=== PATIENT | female | born 1980 | race Caucasian/White ===

== ENCOUNTER → 2019-08-17 14:05 | Outpatient (BNVA) | payer OTHER, SELFPAY | PROVIDERS: PCP Otolaryngology; Visit Provider Internal Medicine Rheumatology | DX: M19.90 Unspecified osteoarthritis, unspecified site (principal); Z11.59 Encounter for screening for other viral diseases; Z79.899 Other long term (current) drug therapy; Z11.1 Encounter for screening for respiratory tuberculosis; Z72.89 Other problems related to lifestyle; F17.210 Nicotine dependence, cigarettes, uncomplicated | CPT/HCPCS: 36415; 80076; 82306; 82565; 85025; 85651; 86140; 86431; 86480; 86704; 86803; 87340; 99204 ==

== ENCOUNTER 2019-08-18 11:17 | Outpatient (CLI) | payer OTHER, SELFPAY ==
--- NOTE | 2019-08-18 11:24 | XR_ITS ---
WS: [id number] RIGHT FOOT: 3 VIEW(S) TECHNIQUE: AP, oblique and lateral. HISTORY: inflammatory arthritis COMPARISON: None available. No acute fracture or dislocation. Normal tarsal/metatarsal alignment. Mild hallux valgus deformity. No erosions. XR/XR foot RT min 3V* [id number] IMPRESSION: Mild hallux valgus deformity.
--- NOTE | 2019-08-18 11:24 | XR_ITS ---
WS: [id number] LEFT FOOT: 3 VIEW(S) TECHNIQUE: AP, oblique and lateral. HISTORY: inflammatory arthritis COMPARISON: None available. No acute fracture or dislocation. Normal tarsal/metatarsal alignment. No erosions. Calcific density just lateral to the proximal phalanx of the first toe. May be related t o prior trauma. XR/XR foot LT min 3V* [id number] IMPRESSION: 1. No erosions or evidence for inflammatory arthritis.
--- NOTE | 2019-08-18 11:24 | XR_ITS ---
WS: [id number] CHEST 2 VIEWS HISTORY: inflammatory arthritis COMPARISON: None available. Lungs: Benign granuloma RIGHT lower lung. Otherwise lungs are clear. No pleural effusion or pneumotho rax. Cardiac size: Normal. Mediastinum/Aorta: Normal mediastinum. Bones: Distal ends of the clavicles are normal. No resorption of bone. XR/XR chest 2V* [id number] IMPRESSION: Prior granulomatous disease. No acute cardiopulmonary disease.
== END 2019-08-18 11:18 | disposition home or self-care (01) ==
LOC: RADWPI 11:22
PROVIDERS: PCP Otolaryngology; Visit Provider Internal Medicine Rheumatology
DX: M20.11 Hallux valgus (acquired), right foot (principal)
CPT/HCPCS: 71046; 73630

== ENCOUNTER → 2019-11-08 11:14 | Outpatient (BNVA) | payer OTHER, SELFPAY | PROVIDERS: PCP Otolaryngology; Visit Provider Internal Medicine Rheumatology | DX: M79.7 Fibromyalgia (principal); M06.041 Rheumatoid arthritis without rheumatoid factor, right hand; M06.042 Rheumatoid arthritis without rheumatoid factor, left hand; Z71.89 Other specified counseling; Z79.899 Other long term (current) drug therapy | CPT/HCPCS: 99214; J1030 ==

== ENCOUNTER → 2019-11-14 12:32 | Outpatient (BNVA) | payer OTHER, SELFPAY | PROVIDERS: PCP Otolaryngology; Visit Provider Internal Medicine Rheumatology | DX: Z79.899 Other long term (current) drug therapy (principal) | CPT/HCPCS: 80053; 81000; 85025 ==

== ENCOUNTER → 2020-02-21 13:39 | Outpatient (BNVA) | payer OTHER, SELFPAY | PROVIDERS: PCP Otolaryngology; Visit Provider Internal Medicine Rheumatology | DX: M06.041 Rheumatoid arthritis without rheumatoid factor, right hand (principal); M06.042 Rheumatoid arthritis without rheumatoid factor, left hand; M79.7 Fibromyalgia; Z79.899 Other long term (current) drug therapy; F17.210 Nicotine dependence, cigarettes, uncomplicated | CPT/HCPCS: 99214 ==

== ENCOUNTER → 2020-05-16 09:02 | Outpatient (BNVA) | payer OTHER, SELFPAY | PROVIDERS: PCP Otolaryngology; Visit Provider Internal Medicine Rheumatology | DX: M06.041 Rheumatoid arthritis without rheumatoid factor, right hand (principal); M06.042 Rheumatoid arthritis without rheumatoid factor, left hand; Z79.899 Other long term (current) drug therapy; M79.7 Fibromyalgia; F17.210 Nicotine dependence, cigarettes, uncomplicated | CPT/HCPCS: 99214 ==

== ENCOUNTER → 2020-09-24 08:38 | Outpatient (BNVA) | payer OTHER, SELFPAY | PROVIDERS: PCP Otolaryngology; Visit Provider Internal Medicine Rheumatology | DX: M06.041 Rheumatoid arthritis without rheumatoid factor, right hand (principal); M06.042 Rheumatoid arthritis without rheumatoid factor, left hand; Z79.899 Other long term (current) drug therapy; M79.7 Fibromyalgia; E87.6 Hypokalemia; R53.83 Other fatigue; F17.210 Nicotine dependence, cigarettes, uncomplicated | CPT/HCPCS: 99214 ==

== ENCOUNTER → 2021-04-30 14:31 | Outpatient (BNVA) | payer MEDICAID, SELFPAY | PROVIDERS: PCP Otolaryngology; Visit Provider Internal Medicine Rheumatology | DX: M06.041 Rheumatoid arthritis without rheumatoid factor, right hand (principal); M06.042 Rheumatoid arthritis without rheumatoid factor, left hand; Z79.899 Other long term (current) drug therapy; R53.83 Other fatigue; M79.7 Fibromyalgia; Z71.89 Other specified counseling; F17.200 Nicotine dependence, unspecified, uncomplicated | CPT/HCPCS: 99214 ==

== ENCOUNTER 2022-06-25 14:42 | Outpatient (CLI) | payer MEDICAID, SELFPAY | END 2022-06-25 14:43 | disposition home or self-care (01) | LOC: LAB 14:47 | PROVIDERS: PCP Physician Assistant; Visit Provider Internal Medicine Rheumatology | DX: Z79.899 Other long term (current) drug therapy (principal); M06.041 Rheumatoid arthritis without rheumatoid factor, right hand; M06.042 Rheumatoid arthritis without rheumatoid factor, left hand | CPT/HCPCS: 36415; 80076; 82565; 85025; 86140 ==